=== PATIENT | male | born 1945 | race Caucasian/White ===

== ENCOUNTER 2020-09-06 23:16 | Emergency (ER) | payer MEDICARE, OTHER ==
[2020-09-06 23:54] LABS: BASOPHIL 0.3 % (0-2); EOSINOPHIL 1.8 % (0-7); HCT 40.9 % (42.0-52.0); HGB 13.5 g/dl (13.2-18.0); LYMPHOCYTE 5.1 % (15-48); MCH 27.9 pg (25.0-31.0); MCV 84.5 fL (78.0-100.0); MONOCYTE 9.9 % (0-12); NEUTROPHIL 82.5 % (41-80); NRBC 0; PLT 148 K/uL (150-400); RBC 4.84 M/uL (4.70-6.00); RDW 13.1 % (11.5-14.0); WBC 10.1 K/uL (4.0-10.5)
[2020-09-07 02:09] LABS: ALBUMIN 3.3 g/dL (3.4-5.0); BILIRUBIN - TOTAL 0.5 mg/dL (0.2-1.0); BUN/CREAT RATIO (CALC) 23.7 RATIO; CREATININE 0.97 mg/dL (0.67-1.17); GLOBULIN (CALCULATION) 5.1 g/dL; POTASSIUM 4.7 mmol/L (3.5-5.1); TOTAL PROTEIN 8.4 g/dL (6.4-8.2)
== END 2020-09-07 06:53 | disposition other institution (70) ==
LOC: FER 23:16
PROVIDERS: Emergency Medicine
DX: C34.90 Malignant neoplasm of unspecified part of unspecified bronchus or lung (principal); M54.9 Dorsalgia, unspecified; Z87.891 Personal history of nicotine dependence; Z20.822 Contact with and (suspected) exposure to COVID-19
CPT/HCPCS: 36415; 71045; 72072; 80053; 84484; 85025; 93005; J1170; J2270; J2405; U0002

== ENCOUNTER 2020-09-15 03:27 | Emergency (ER) | payer MEDICARE, OTHER ==
[2020-09-15 03:47] LABS: BASOPHIL 0.3 % (0-2); EOSINOPHIL 2.9 % (0-7); HCT 38.2 % (42.0-52.0); HGB 12.5 g/dl (13.2-18.0); LYMPHOCYTE 8.5 % (15-48); MCH 27.3 pg (25.0-31.0); MCHC 32.7 g/dL (32.0-36.0); MCV 83.4 fL (78.0-100.0); MONOCYTE 13.3 % (0-12); MPV 8.5 fL (6.0-9.5); NEUTROPHIL 74.1 % (41-80); NRBC 0; PLT 209 K/uL (150-400); RBC 4.58 M/uL (4.70-6.00); RDW 13.2 % (11.5-14.0); WBC 10.4 K/uL (4.0-10.5)
[2020-09-15 04:13] LABS: LACTIC ACID 0.8 mmol/L (0.4-1.9)
[2020-09-15 04:16] LABS: ALBUMIN 3.2 g/dL (3.4-5.0); BILIRUBIN - TOTAL 1.1 mg/dL (0.2-1.0); BUN/CREAT RATIO (CALC) 24.1 RATIO; CREATININE 3.24 mg/dL (0.67-1.17); GLOBULIN (CALCULATION) 4.8 g/dL; POTASSIUM 5.5 mmol/L (3.5-5.1)
== END 2020-09-15 16:10 | disposition home or self-care (01) ==
LOC: FER 03:27
PROVIDERS: Emergency Medicine
DX: C34.90 Malignant neoplasm of unspecified part of unspecified bronchus or lung (principal); C79.9 Secondary malignant neoplasm of unspecified site; J44.9 Chronic obstructive pulmonary disease, unspecified; Z87.891 Personal history of nicotine dependence
CPT/HCPCS: 36415; 71045; 80053; 83605; 84484; 85025; 93005; 94640; 94664; J1170